=== PATIENT | female | born 1935 | race Caucasian/White ===

== ENCOUNTER → 2016-09-26 | Outpatient (CLI) | payer MEDICARE, MEDICAID ==
[~2016-09-26] MED LIST: ASPIRIN 81MG TA81 MG PO; CARVEDILOL 1212.5 MG PO; FUROSEMIDE40 MG PO; KEFLEX 500MG.500 MG PO; LISINOPRIL 20MG20 MG PO; PIOGLITAZONE HY45 MG PO; POTASSIUM CHLO10 ME3 PO; SIMVASTATIN20 MG PO; TRAMADOL50 M1
--- NOTE | 2016-09-26 13:16 | RADIOLOGY REPORT PS360 ---
UGI SERIES W/SMALL BOWEL COMPARISON: None HISTORY: Abdominal pain TECHNIQUE: Fluoroscopy while drinking barium with follow-up films of the small bowel FINDINGS: The certified histologic technician film shows surgical clips right quadrant probably from previous cholecystectomy. There is minimal scattered small bowel gas left upper quadrant. The swallowing function is normal. There is minimal intermittent cricopharyngeal dysfunction noted. There were mild tertiary contractions of the distal esophagus and there is a small sliding hiatal hernia noted. There is no significant gastroesophageal reflux seen during the study. Stomach is well-distended with barium and air and show no intrinsic abnormality. The duodenal bulb and duodenal sweep are radiographically normal. There is normal transit time of barium through the small bowel small bowel appear normal caliber with normal fold pattern. Spot films of the terminal ileum show no abnormality. IMPRESSION: Mild cricopharyngeal dysfunction and mild esophageal dyskinesia with a small sliding hiatal hernia noted. Grossly normal-appearing stomach and small bowel. The fluoroscopy time was 3 minutes and 14 seconds
--- NOTE | 2016-09-26 13:16 | RADIOLOGY REPORT PS360 ---
UGI SERIES W/SMALL BOWEL COMPARISON: None HISTORY: Abdominal pain TECHNIQUE: Fluoroscopy while drinking barium with follow-up films of the small bowel FINDINGS: The hospital mortician film shows surgical clips right quadrant probably from previous cholecystectomy. There is minimal scattered small bowel gas left upper quadrant. The swallowing function is normal. There is minimal intermittent cricopharyngeal dysfunction noted. There were mild tertiary contractions of the distal esophagus and there is a small sliding hiatal hernia noted. There is no significant gastroesophageal reflux seen during the study. Stomach is well-distended with barium and air and show no intrinsic abnormality. The duodenal bulb and duodenal sweep are radiographically normal. There is normal transit time of barium through the small bowel small bowel appear normal caliber with normal fold pattern. Spot films of the terminal ileum show no abnormality. IMPRESSION: Mild cricopharyngeal dysfunction and mild esophageal dyskinesia with a small sliding hiatal hernia noted. Grossly normal-appearing stomach and small bowel. The fluoroscopy time was 3 minutes and 14 seconds
== END ==
LOC: RAD 10:44
DX: R10.13 Epigastric pain (principal); K31.9 Disease of stomach and duodenum, unspecified

== ENCOUNTER 2016-11-28 15:20 | Day surgery (SDC) | payer MEDICARE, MEDICAID ==
[~2016-11-28] VITALS: Ht 157.5 cm; Wt 81.6 kg
[2016-11-28 15:34] VITALS: BP 153/43
[2016-11-28 15:46] VITALS: BP 153/43
[2016-11-28 15:48] VITALS: BP 155/50
--- NOTE | 2016-11-28 15:56 | Procedure Note ---
Procedure detail Date of procedure: 11/28/16 Anesthesiologist: Kal Powell Complications: None Pre-procedure diagnosis: Degenerative disc disease lumbar spine multiple levels. Lumbar facet arthropathy. Myofascial pain syndrome LEFT lumbar paraspinous muscles. Post-procedure diagnosis: Same Indications for procedure: This patient is a pleasant 81-year-old white female that we've been treating for chronic low back pain for quite some time. Patient has had bilateral lumbar medial branch blocks followed by radiofrequency ablations. Patient continues having left-sided lumbar back pain that she describes as constant, dull, aching. Upon examination this pain seems to be muscular in nature. Patient states the pain intensifies with flexion and extension. Patient presents for trigger point injections of the LEFT lumbar paraspinous muscle. Procedure detail: Details of the procedure spine to the patient. The patient was taken to procedure room patient a sitting position on fluoroscopy table. The area over the LEFT lumbar spine was cleansed using chlorhexidine as a cleansing solution. The lumbar paraspinous muscle in 4 separate locations was injected using 0.25 percent Marcaine +1 percent lidocaine and 2-3 mL at 4 separate locations of the LEFT lumbar paraspinous muscle. Patient tolerated the procedure without difficulty. No palpitations. Plan and disposition: Patient was reevaluated 10 minutes post procedure. She reports 90 percent improvement terms her LEFT lumbar myofascial pain. She'll return to see us in the pain clinic for further evaluation. at [id number]
[2016-11-28 15:59] VITALS: BP 148/48
== END 2016-11-28 16:01 ==
LOC: PM 15:20
PROC: 3E023BZ Introduction of Anesthetic Agent into Muscle, Percutaneous Approach (ICD-10-PCS; principal; 2016-11-28)
DX: M51.36 Other intervertebral disc degeneration, lumbar region (principal); M12.88 Other specific arthropathies, not elsewhere classified, other specified site; M79.1 Myalgia
CPT/HCPCS: J1030

== ENCOUNTER → 2016-12-29 | Outpatient (CLI) | payer MEDICARE ==
--- NOTE | 2017-01-01 19:53 | RADIOLOGY REPORT PS360 ---
PROCEDURE: 2-D M-mode and color Doppler study INDICATIONS FOR THE TEST: Chest pain COPD Heart Murmur Tobacco SmokingEX Palpitations Fatigue Syncope EdemaX HypertensionXDiabetes MellitusX Rheumatic Fever SOB DOEXObesityXHyperlipidemiaX Family History HD Additional History CAD PATIENT INFORMATION HEIGHT: 62 WEIGHT:185 GENDER: Female B/P:121/85 2-D/M-MODE INTERPRETATION: 2-D MEASUREMENTS OBSERVED VALUES IN CMS Right Ventricular Dimension (RVDd) 2.4 Interventricular Septum (Thickness)(IVsd) 1.0 Left Ventricular Internal Dimensions(LVIDd) 5.0 Left Ventricular Posterior Wall (Thickness)(LVPWd) 1.0 Aortic Root 2.3 Aortic Cusp Separation 2.0 Left Atrial Dimensions (LAD) 3.5 2D 1. Left atrium is qualitatively moderately enlarged, left ventricle is normal size, there is borderline concentric left ventricular hypertrophy, visually estimated ejection fraction 55% with no obvious regional wall motion abnormality. 2. The right atrium is mildly enlarged, right ventricle is normal size and contractility. 3. The aortic valve is thickened and calcified, leaflet continue to display mobility. 4. There are degenerative changes seen in both anterior and posterior mitral leaflet, there is mild mitral annular calcification present. 5. The tricuspid valve is minimally thickened. 6. The pulmonic valve is poorly visualized. 7. No significant pericardial effusion noted. DOPPLER INTERROGATION: Doppler interrogation of the aortic, mitral and tricuspid valve reveals presence of trace aortic, moderate to severe mitral regurgitation, there is blunting of the systolic forward flow seen in the pulmonary vein. There is mild tricuspid regurgitation seen, calculated right ventricular systolic pressure is 47 mmHg consistent with moderate pulmonary hypertension, tissue Doppler is indicated of raised left atrial pressure. CONCLUSION: 1. Moderately enlarged left atrium, normal left ventricular size, visually estimated ejection fraction 55% with no obvious regional wall motion abnormality, tissue Doppler evidence of raised left atrial pressure. 2. Moderate to severe mitral regurgitation as described above, there is blunting of the systolic forward flow seen in the pulmonary vein. If clinically indicated transesophageal echocardiogram is recommended to evaluate the morphology of the mitral valve as well as the severity of the mitral regurgitation. 3. Mild tricuspid regurgitation noted calculated right ventricular systolic pressure is 47 mmHg consistent with moderate pulmonary hypertension. 4. No significant pericardial effusion noted.
== END ==
LOC: RT 13:45
DX: I25.10 Atherosclerotic heart disease of native coronary artery without angina pectoris (principal); R60.9 Edema, unspecified; I10 Essential (primary) hypertension; E78.5 Hyperlipidemia, unspecified; I50.30 Unspecified diastolic (congestive) heart failure